=== PATIENT | female | born 1990 ===

== ENCOUNTER 2018-01-06 11:51 | Emergency (ER) | payer SELFPAY ==
[2018-01-06] MEDS ORDERED: Dextrose 50% SYRINGE Inj (50 ml) ONE (12:00)
[2018-01-06 12:15] VITALS: RESP 20; O2SAT 100
[2018-01-06] MEDS ORDERED: Dextrose 50% SYRINGE Inj (50 ml) IV STA (12:23)
--- NOTE | 2018-01-06 13:12 | C.PDOC ---
History Of Present Illness 27 y/o female, iddm, comes to ed s/p syncopal episode, pt took 32 units insulin this morning, was on her way to get something to eat and fainted in the street, f/s on ed arrival was 47, given one amp d50 pt was initially diaphoretic. pt c/o pain to left knee, no headache or neck pain. Time Seen by Provider: 01/06/18 12:21 Chief Complaint (Nursing): Syncope History Per: Patient History/Exam Limitations: no limitations Onset/Duration Of Symptoms: Hrs Current Symptoms Are (Timing): Still Present Number Of Syncopal Episodes: 1 Activity At Onset Of Symptoms: Walking Seizure Or Post-ictal Symptoms: None Possible Causative Factor(s): Decreased PO Intake (didn't eat after taking insulin) Fall Associated With With Symptoms: Other (left knee pain) Severity: Moderate Past Medical History Reviewed: Historical Data, Nursing Documentation, Vital Signs Vital Signs: Last Vital Signs Temp 97.8 F 01/06/18 11:52 Pulse 72 01/06/18 11:52 Resp 20 01/06/18 11:52 BP 91/57 L 01/06/18 11:52 Pulse Ox 100 01/06/18 11:52 - Medical History PMH: Diabetes Surgical History: No Surg Hx Family History: States: No Known Family Hx - Social History Hx Alcohol Use: No Hx Substance Use: No - Immunization History Hx Tetanus Toxoid Vaccination: Yes Hx Influenza Vaccination: No Hx Pneumococcal Vaccination: No Review Of Systems Constitutional: Negative for: Fever Cardiovascular: Negative for: Chest Pain, Palpitations Respiratory: Negative for: Cough, Shortness of Breath Gastrointestinal: Negative for: Abdominal Pain Musculoskeletal: Positive for: Other (left knee pain). Negative for: Neck Pain Neurological: Positive for: Other (syncope ( currently resolved)). Negative for: Weakness, Numbness, Headache Physical Exam - Physical Exam Appears: Non-toxic, No Acute Distress Skin: Normal Color, Warm, Dry, Diaphoretic (on arrival) Head: Atraumatic, Normacephalic Eye(s): bilateral: Normal Inspection, PERRL, EOMI Tongue: No Bite, No Laceration Neck: No Midline Cervical Tenderness, No Paracervical Tenderness, Supple Chest: Symmetrical Cardiovascular: Rhythm Regular, No Murmur Respiratory: Normal Breath Sounds, No Rales, No Rhonchi, No Wheezing Gastrointestinal/Abdominal: Bowel Sounds, Soft, No Tenderness, No Guarding, No Rebound Extremity: Normal ROM, No Tenderness, No Swelling, Other (abrasion to left knee) Neurological/Psych: Oriented x3, Normal Speech, Normal Cognition, Normal Cranial Nerves, Normal Motor, Normal Sensation ED Course And Treatment - Laboratory Results Result Diagrams: 01/06/18 13:38 01/06/18 18:14 O2 Sat by Pulse Oximetry: 100 (RA) Pulse Ox Interpretation: Normal Medical Decision Making Medical Decision Making: Plan: --Labs --EKG --UA --IV Fluids 1840 pt with sugar now of 249, after replenishment of potasisum. pt now with k of 4. 6,. pt feeling much better. advised to check sugar at home before evening insulin, eat potassium contain foods. f/u pmd Disposition Counseled Patient/Family Regarding: Studies Performed, Diagnosis, Need For Foll owup - Disposition Disposition: HOME/ ROUTINE Disposition Time: 18:43 Condition: IMPROVED Additional Instructions: Please check blood sugar before givin your self insulin. Please eat when you give yourelf insulin. Eat more foods with potassium like banana and oranges. Follow up with your primary care doctor and with your wax pot tender in the next few days Return to ER for any worse symptoms. 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 - Scribe Statement The provider has reviewed the documentation as recorded by the Freddy Boswell Provider Attestation All medical record entries made by the Freddy were at my direction and personally dictated by me. I have reviewed the chart and agree that the record accurately reflects my personal performance of the history, physical exam, medical decision making, and the department course for this patient. I have also personally directed, reviewed, and agree with the discharge instructions and disposition.
[2018-01-06 13:42] LABS: BASO % 0.2 % (0.0-2.0); EOS # 0.1 K/uL (0.0-0.7); HEMOGLOBIN 14.4 g/dL (11.0-16.0); LYMPH # 9.1 K/uL (1.0-4.3); LYMPH % 59.7 % (20.0-40.0); MEAN CELL VOLUME 95.8 fL (81.0-99.0); MEAN CORPUSCULAR HEMOGLOBIN 32.3 pg (27.0-31.0); MEAN CORPUSCULAR HGB CONC 33.7 g/dL (33.0-37.0); MEAN PLATELET VOLUME 10.1 fL (7.2-11.7); MONO % 6.5 % (0.0-10.0); NEUT # 4.9 K/uL (1.8-7.0); NEUT % 32.6 % (50.0-75.0); NRBC % 0.1 % (0.0-2.0); RBC 4.44 Mil/uL (3.80-5.20); RED CELL DISTRIBUTION WIDTH 12.2 % (11.5-14.5); WHITE BLOOD COUNT 15.2 K/uL (4.8-10.8)
[2018-01-06] MEDS ORDERED: Sodium Chloride 0.9% 1,000 ML IV ONE (13:43)
[2018-01-06 15:15] VITALS: TEMP 98.1
[2018-01-06 15:17] LABS: ALB/GLOB RATIO 1.6 (1.0-2.1); ALBUMIN 4.4 g/dL (3.5-5.0); ALT/SGPT 21 U/L (9-52); AST/SGOT 22 U/L (14-36); BLOOD UREA NITROGEN 14 mg/dL (7-17); CALCIUM 9.8 mg/dl (8.6-10.4); GFR NON-AFRICAN AMERICAN > 60
[2018-01-06] MEDS ORDERED: Potassium Chloride 20 mEq ER Tab PO STA (15:22)
[2018-01-06 15:30] LABS: SQUAMOUS EPITHIAL 3 /hpf (0-5); URINE BACTERIA RARE (<OCC); URINE BILIRUBIN NEGATIVE (NEGATIVE); URINE BLOOD NEGATIVE (NEGATIVE); URINE CLARITY Hazy (Clear); URINE COLOR Yellow (YELLOW); URINE GLUCOSE (UA) 3+ mg/dL (Normal); URINE LEUKOCYTE ESTERASE NEG Leu/uL (Negative); URINE PROTEIN 1+ mg/dL (NEGATIVE)
[2018-01-06] MEDS ORDERED: Potassium Chloride 20 mEq ER Tab PO ONE (15:50)
[2018-01-06 18:36] LABS: BLOOD UREA NITROGEN 15 mg/dL (7-17); CALCIUM 8.8 mg/dl (8.6-10.4); GFR NON-AFRICAN AMERICAN > 60
[2018-01-06 18:54] VITALS: BP 111/66; PULSE 78
--- NOTE | 2018-01-07 15:40 | CARD ---
APPROVED REPORT Date of service: 01/06/2018 EKG Measurement Heart [id number] <Conclusion> Normal sinus rhythm Normal ECG
== END 2018-01-06 19:02 | disposition home or self-care (01) ==
LOC: C.ER 11:51
DX: E11.649 Type 2 diabetes mellitus with hypoglycemia without coma (principal); Z79.4 Long term (current) use of insulin; R55 Syncope and collapse; E87.6 Hypokalemia
CPT/HCPCS: 80053; 81001; 82948; 84702; 85025; 87086; 93005; 96361; 96374; 99285; J3480; J7030